=== PATIENT | female | born 1965 | race Caucasian/White ===

== ENCOUNTER → 2017-01-29 | Outpatient (CLI) | payer OTHER ==
--- NOTE | 2017-01-29 16:00 | REP ---
Clinical: Lower back pain and sciatica. Technique: AP, lateral, bilateral oblique, and coned-down views of the lumbosacral spine. Comparison: 11/22/2014. Findings: Alignment and lordosis maintained. No acute fracture / compression injury or subluxation. Moderate degenerative disc osteophyte complex primarily involving the L4-5 and L5-S1 levels include marginal osteophytes, endplate sclerosis and disc space narrowing with mild hypertrophic facet changes. Remainder examination demonstrates relatively age-appropriate changes. No spondylolysis or spondylolisthesis. Impression: Moderate degenerative disc osteophyte complexes at the L4-5 and L5-S1 levels. Normal alignment without acute fracture / compression injury or subluxation. Signed by Steve Cleaning MD 01/29/2017 03:52 P
--- NOTE | 2017-01-29 16:02 | REP ---
Clinical: Sciatica. Technique: AP and frog lateral views of the left femur. Findings: Mild age-related changes to the left hip include joint space narrowing with subtle increased sclerosis to the acetabular roof and marginal spurring. No acute fracture dislocation. Impression: Mild arthritic degenerative changes. Signed by Steve Cleaning MD 01/29/2017 03:54 P
== END ==
LOC: M RAD 14:55
PROVIDERS: ATTEND Family Medicine
DX: M25.78 Osteophyte, vertebrae (principal); M16.12 Unilateral primary osteoarthritis, left hip; M79.605 Pain in left leg; M54.30 Sciatica, unspecified side

== ENCOUNTER → 2017-09-19 | Outpatient (REF) | payer MEDICAID | LOC: M SFHCLERA 10:35 | DX: J02.9 Acute pharyngitis, unspecified (principal) ==

== ENCOUNTER → 2020-03-02 | Outpatient (CLI) | payer OTHER ==
--- NOTE | 2020-04-20 16:26 | REP ---
LEFT LOWER EXTREMITY DOPPLER ULTRASOUND: HISTORY: Left lower extremity pain and swelling. TECHNIQUE: Real time, harrington scale and color Doppler evaluation using linear high frequency transducer. FINDINGS: The left lower extremity deep venous structures from the common femoral vein to the popliteal vein demonstrate normal compressibility, flow and wave characteristics in response to respiration and augmentation. There is no evidence for deep venous thrombosis. IMPRESSION: Negative examination. No evidence for DVT. MTDD
== END ==
LOC: M RAD 10:35
PROVIDERS: ATTEND Physician Assistant
DX: M79.605 Pain in left leg (principal)

== ENCOUNTER → 2022-03-21 | Outpatient (CLI) | payer OTHER ==
[2022-03-21 12:01] LABS: HEMOGLOBIN 11.2 g/dl (12.0-15.5); MEAN CORPUSCULAR HEMOGLOBIN 18.5 pg (27.0-33.0); MEAN CORPUSCULAR HGB CONC 30.3 g/dl (32.0-36.5); MEAN CORPUSCULAR VOLUME 61.1 fl (80.0-96.0); PLATELET COUNT, AUTOMATED 197 10^3/uL (150-450); RED BLOOD COUNT 6.06 10^6/uL (4.00-5.40); WHITE BLOOD COUNT 7.1 10^3/uL (4.0-10.0)
[2022-03-21 12:23] LABS: HEMOGLOBIN A1c 5.8 %
[2022-03-21 12:51] LABS: ALBUMIN 3.8 GM/DL (3.2-5.2); ALT/SGPT 26 U/L (12-78); BILIRUBIN,TOTAL 0.5 MG/DL (0.2-1.0); BLOOD UREA NITROGEN 17 MG/DL (7-18); CALCIUM LEVEL 9.6 MG/DL (8.5-10.1); CARBON DIOXIDE LEVEL 28 MEQ/L (21-32); CHLORIDE LEVEL 106 MEQ/L (98-107); CHOLESTEROL LEVEL 256 MG/DL (<200); CHOLESTEROL RISK RATIO 5.019 (<5); CREATININE FOR GFR 0.79 MG/DL (0.55-1.30); GLOMERULAR FILTRATION RATE > 60.0 (>51); GLUCOSE, FASTING 96 MG/DL (70-100); HDL CHOLESTEROL 51 MG/DL (>40); LDL CHOLESTEROL 179 MG/DL (<100); NON-HDL-C 205 MG/DL; POTASSIUM SERUM 4.8 MEQ/L (3.5-5.1); SODIUM LEVEL 136 MEQ/L (136-145); TRIGLYCERIDES LEVEL 132 MG/DL (<150)
== END ==
LOC: M LAB 10:45
PROVIDERS: ATTEND Family Medicine
DX: D64.9 Anemia, unspecified (principal); R53.83 Other fatigue; E03.9 Hypothyroidism, unspecified

== ENCOUNTER → 2023-11-14 | Outpatient (CLI) | payer OTHER ==
[2023-11-14 12:04] LABS: HEMATOCRIT 38.8 % (36.0-47.0); HEMOGLOBIN 11.8 g/dl (12.0-15.5); MEAN CORPUSCULAR HEMOGLOBIN 18.9 pg (27.0-33.0); MEAN CORPUSCULAR HGB CONC 30.4 g/dl (32.0-36.5); MEAN CORPUSCULAR VOLUME 62.2 fl (80.0-96.0); PLATELET COUNT, AUTOMATED 213 10^3/uL (150-450); RED BLOOD COUNT 6.24 10^6/uL (4.00-5.40); WHITE BLOOD COUNT 7.8 10^3/uL (4.0-10.0)
[2023-11-14 12:32] LABS: ALBUMIN 3.7 G/DL (3.2-5.2); ALKALINE PHOSPHATASE 65 U/L (46-116); ALT/SGPT 17 U/L (7.0-40); AST/SGOT 10 U/L (<34); BILIRUBIN,TOTAL 0.8 MG/DL (0.3-1.2); BLOOD UREA NITROGEN 11 MG/DL (9-23); CARBON DIOXIDE LEVEL 30 MMOL/L (20-31); CHLORIDE LEVEL 104 MMOL/L (98-107); CHOLESTEROL LEVEL 187 MG/DL (<200); GLOMERULAR FILTRATION RATE > 60.0 (>51); GLUCOSE, FASTING 93 MG/DL (60-100); HDL CHOLESTEROL 46.7 MG/DL (>40); LDL CHOLESTEROL 110.9 MG/DL (<100); NON-HDL-C 140.3 MG/DL; POTASSIUM SERUM 4.4 MMOL/L (3.5-5.1); SODIUM LEVEL 138 MMOL/L (136-145); TOTAL PROTEIN 7.1 G/DL (5.7-8.2); TRIGLYCERIDES LEVEL 147 MG/DL (<150)
[2023-11-14 12:33] LABS: THYROID STIMULATING HORMONE 2.633 uIU/ML (0.55-4.78)
[2023-11-14 12:34] LABS: TOTAL 25(OH) VITAMIN D 68.9 NG/ML (20.0-100.0)
[2023-11-14 12:52] LABS: HEMOGLOBIN A1c 5.3 % (4.0-6.0)
== END ==
LOC: M LAB 11:25
PROVIDERS: ATTEND Family Medicine
DX: I10 Essential (primary) hypertension (principal); R53.83 Other fatigue; E03.9 Hypothyroidism, unspecified

== ENCOUNTER 2025-02-20 10:56 | Day surgery (SDC) | payer OTHER ==
[~2025-02-20] VITALS: Ht 162.6 cm; Wt 83.6 kg
[~2025-02-20 10:56] MED LIST: ERGO500029 PO; LIDOCAINE 2% 100 MG/5 ML SDV (FOR ANES.) As Ordered ONE; METO1TAB32 PO; SERT25TA21 PO; SIMV20TA22 PO
[2025-02-20 12:46] VITALS: TEMP 96.9
[2025-02-20 13:10] VITALS: BP 132/70; O2SAT 100
== END 2025-02-20 13:12 | disposition home or self-care (01) ==
LOC: M OPP 10:56
PROVIDERS: ATTEND Internal Medicine Gastroenterology
DX: D12.6 Benign neoplasm of colon, unspecified (principal); K64.0 First degree hemorrhoids; D50.9 Iron deficiency anemia, unspecified; Z79.899 Other long term (current) drug therapy
CPT/HCPCS: 43239; 45385; 88305; J3010

== ENCOUNTER → 2025-07-17 | Outpatient (CLI) | payer OTHER ==
[~2025-07-17] MED LIST changes: -LIDOCAINE 2% 100 MG/5 ML SDV (FOR ANES.) As Ordered ONE
== END ==
LOC: M WUC 15:40
PROVIDERS: ATTEND Nurse Practitioner Family
DX: M25.531 Pain in right wrist (principal)